=== PATIENT | female | born 1945 | race Caucasian/White ===

== ENCOUNTER 2022-05-17 10:27 | Emergency (ER) | payer MEDICARE ==
[2022-05-17 11:07] LABS: HEMOGLOBIN 8.9 gm/dl (12.3-15.3); RED BLOOD COUNT 4.22 M/UL (4.00-5.10); WHITE BLOOD COUNT 6.7 K/UL (4.5-11.0)
[2022-05-17 12:00] LABS: BUN/CREATININE RATIO 28 (0-10)
== END 2022-05-17 12:09 | disposition left against medical advice (07) ==
LOC: ER1 10:27
PROVIDERS: Physician Assistant Medical
DX: R07.9 Chest pain, unspecified (principal); D64.9 Anemia, unspecified; I25.10 Atherosclerotic heart disease of native coronary artery without angina pectoris; E78.5 Hyperlipidemia, unspecified; I10 Essential (primary) hypertension; Z95.5 Presence of coronary angioplasty implant and graft; Z90.710 Acquired absence of both cervix and uterus; Z51.81 Encounter for therapeutic drug level monitoring
CPT/HCPCS: 71045; 80053; 82550; 82553; 83880; 84484; 85025; 85610; 93005; 99283

== ENCOUNTER → 2022-06-11 | Outpatient (CLI) | payer MEDICARE ==
[2022-06-11 12:05] LABS: HEMOGLOBIN 8.4 gm/dl (12.3-15.3)
== END ==
LOC: LAB 11:42
PROVIDERS: Family Medicine
DX: D50.9 Iron deficiency anemia, unspecified (principal)
CPT/HCPCS: 36415; 85014; 85018; 86850; 86900; 86901; 86920

== ENCOUNTER → 2022-06-12 | Outpatient (CLI) | payer MEDICARE | LOC: OPSV 06-11 09:00 | DX: D50.9 Iron deficiency anemia, unspecified (principal) | CPT/HCPCS: 36430; 86850; 86900; 86901; 86920; J7050; P9016 ==